=== PATIENT | female | born 1995 | race Caucasian/White ===

== ENCOUNTER 2022-12-11 20:32 | Inpatient (IN) | payer OTHER ==
[2022-12-11 22:15] LABS: #Basophils 0.1 10x3/uL (0.0-0.2); #Eosinphils 0.1 10x3/uL (0.0-0.5); #Monocytes 0.8 10x3/uL (0.0-1.1); #Neutrophils 9.4 10x3/uL (1.5-8.4); %Basophils 0.4 % (0.0-2.0); %Eosinophils 0.5 % (0.0-6.0); %Lymphocytes 19.3 % (18.0-47.0); %Monocytes 6.5 % (0.0-10.0); Hemoglobin 12.9 g/dL (12.0-15.5); Mean Corpuscular HGB CONC 34.8 g/dL (32.0-36.0); Mean Corpuscular Hemoglobin 31.2 pg (27.0-33.0); Mean Corpuscular Volume 89.8 fl (81.6-98.3); Platelet Count 236 10x3/uL (150-450); RBC Distribution Width 13.2 % (11.5-14.5); Red Blood Cell (RBC) Count 4.13 10x6/uL (3.90-5.03); White Blood Cell (WBC) Count 12.9 10x3/uL (3.5-10.5)
[2022-12-11] MEDS ORDERED: Morphine 4 MG/ML VIAL ONE (22:16)
[2022-12-11] MEDS ORDERED: Ondansetron PF 4 MG/2 ML Vial ONE (22:16)
[2022-12-11 22:29] LABS: ALT (SGPT) 9 U/L (8-55); AST (SGOT) 16 U/L (5-34); Albumin 3.9 g/dL (3.5-5.0); Alkaline Phosphatase 45 U/L (40-110); Anion Gap 14 mmol/L (10-20); BUN (Urea Nitrogen) 10 mg/dL (7.0-18.7); Bilirubin, Total 0.2 mg/dL (0.2-1.2); Calc. Creatinine Clearance 0 mL/min (70-130); Calcium 8.9 mg/dL (7.8-10.44); Carbon Dioxide 19 mmol/L (22-29); Chloride 106 mmol/L (98-107); Estimated GFR 123; Glucose 81 mg/dL (70-105); Potassium 3.6 mmol/L (3.5-5.1); Protein, Total 6.9 g/dL (6.0-8.3); Sodium 135 mmol/L (136-145)
[2022-12-11] MEDS ORDERED: hydrOXYzine 25 MG TAB ONE (22:36)
[2022-12-12] MEDS ORDERED: fentaNYL 50 mcg/mL 1 mL Vial ONE ×2 (00:07→02:29)
[2022-12-12 00:13] VITALS: BMI 21.2
[2022-12-12] MEDS: Misoprostol 200 MCG TAB ONE (00:22)
[2022-12-12] MEDS ORDERED: Acetaminophen 500 MG TAB PO PRN (00:45)
[2022-12-12] MEDS ORDERED: Ondansetron PF 4 MG/2 ML Vial IVP PRN (00:45)
[2022-12-12] MEDS ORDERED: Lidocaine 1% (PF) 30 ML VIAL SC PRN (00:45)
[2022-12-12] MEDS ORDERED: Diphenoxylate HCl/Atropine Tablet PO PRN ×2 (00:45)
[2022-12-12] MEDS ORDERED: Carboprost 250 MCG/ML AMP IM PRN (00:45)
[2022-12-12] MEDS ORDERED: Promethazine HCl 25 MG/ML VIAL IM PRN (00:45)
[2022-12-12] MEDS ORDERED: hydrALAZINE 20 MG/ML VIAL SLOW IVP PRN (00:45)
[2022-12-12] MEDS ORDERED: NS w/ Oxytocin 30 units 500 ML IVPB SCH (00:45)
[2022-12-12] MEDS ORDERED: NS w/ Oxytocin 30 units 500 ML IV SCH (00:45)
[2022-12-12] MEDS ORDERED: Ibuprofen 800 MG TAB PO PRN (00:45)
[2022-12-12] MEDS ORDERED: Methylergonovine 0.2 MG/ML VIAL IM PRN (00:45)
[2022-12-12] MEDS ORDERED: Misoprostol 200 MCG TAB RC PRN (00:45)
[2022-12-12] MEDS ORDERED: Lactated Ringer's 1,000 ML IV SCH ×2 (00:45)
[2022-12-12] MEDS ORDERED: fentaNYL 50 mcg/mL 1 mL Vial SLOW IVP PRN (02:43)
[2022-12-12] MEDS ORDERED: Misoprostol 200 MCG TAB PO SCH (02:45)
[2022-12-12 10:33] LABS: Hemoglobin 8.8 g/dL (12.0-15.5); Mean Corpuscular HGB CONC 34.1 g/dL (32.0-36.0); Mean Corpuscular Hemoglobin 31.2 pg (27.0-33.0); Mean Corpuscular Volume 91.5 fl (81.6-98.3); Mean Platelet Volume 10.6 fl (7.4-10.4); Platelet Count 193 10x3/uL (150-450); RBC Distribution Width 13.3 % (11.5-14.5); Red Blood Cell (RBC) Count 2.82 10x6/uL (3.90-5.03); White Blood Cell (WBC) Count 11.2 10x3/uL (3.5-10.5)
[2022-12-12 13:31] LABS: Bilirubin Neg (Negative); Blood, Urine 250 (Negative); Clarity Cloudy (Clear); Glucose, Urine (Dipstick) Normal (Negative); Ketone, Urine Negative (Negative); Leukocyte 100 (Negative); Nitrite Negative (Negative); Protein, Urine (Dipstick) 30 mg/dl (Neg-Trace); Specific Gravity, Urine 1.015 (1.005-1.030); Urobilinogen Normal mg/dL (Less than 2)
[2022-12-12 13:39] LABS: Amphetamine Not Detected (NotDetected); Barbiturates Screen Not Detected (NotDetected); Benzodiazepine Screen Not Detected (NotDetected); Cocaine Metabolite Screen Not Detected (NotDetected); Methadone Not Detected (NotDetected); Methamphetamine Not Detected (NotDetected); Opiate Screen Detected (NotDetected); Oxycodone Screen Not Detected (NotDetected); Phencyclidine (PCP) Not Detected (NotDetected); THC/Cannabinoid Screen Not Detected (NotDetected); Tricyclic Screen Not Detected (NotDetected)
[2022-12-12 13:48] LABS: CAUTI Indications for Culture Pregnancy; RBC/HPF Greater than 50 HPF (0-3); Squamous Epithelial 0-3 HPF (0-3)
[2022-12-12 13:49] LABS: Bacteria/HPF 1+ HPF (None Seen); Mucous/LPF Rare LPF (<2+)
[2022-12-12 13:51] LABS: Urine Culture Reflex Yes Yes
[2022-12-12] MEDS ORDERED: Calcium Carbonate 500 MG ChewTAB PO SCH (16:30)
[2022-12-12 18:35] VITALS: BP 92/52; TEMP 98.3
== END 2022-12-12 20:10 | disposition home or self-care (01) | DRG 779 ==
LOC: CSHERS 20:32 → CSHLD 23:54 → OBSVTOIN 23:54
PROVIDERS: ADMIT Obstetrics & Gynecology; ATTEND Obstetrics & Gynecology
PROC: 10D07Z8 Extraction of Products of Conception, Other, Via Natural or Artificial Opening (ICD-10-PCS; principal; 2022-12-12)
PROC: 30233N1 Transfusion of Nonautologous Red Blood Cells into Peripheral Vein, Percutaneous Approach (ICD-10-PCS; 2022-12-12)
DX: O02.1 Missed abortion (principal); F32.A Depression, unspecified; O99.342 Other mental disorders complicating pregnancy, second trimester; O34.211 Maternal care for low transverse scar from previous cesarean delivery; Z88.0 Allergy status to penicillin; D64.9 Anemia, unspecified; O99.012 Anemia complicating pregnancy, second trimester; O42.012 Preterm premature rupture of membranes, onset of labor within 24 hours of rupture, second trimester
CPT/HCPCS: 36415; 36430; 76705; 76815; 80053; 80306; 81001; 84484; 85025; 85027; 86850; 86900; 86901; 87040; 87086; 88300; 88305; 93005; 93010; 93306; J2270; J2405; J3010; P9016